=== PATIENT | male | born 1995 | race Two or more races ===

== ENCOUNTER 2016-12-07 22:00 | Emergency (ER) | payer SELFPAY ==
[2016-12-07 22:04] VITALS: BP 145/78; BMI 20.9
[2016-12-07] MEDS ORDERED: TORADOL 30 MG VIAL IVP STA (22:37)
[2016-12-07] MEDS ORDERED: TORADOL 30 MG VIAL ONE (22:39)
--- NOTE | 2016-12-07 22:41 | DR.ABDMALE ---
HPI - Time seen Time seen: 22:38 - PCP Primary Care Physician: NFD - Complaint Chief Complaint Doctors Comments: Patient complains of right lower abdominal pain for the past 24 hours getting worst tonight. Patient states pain 6 of 10. He denies fever, chills, nausea or vomiting. Patient denies hematuria, diarrhea or pedro. States he has no local doctor and he denies any recent trauma. Patient denies tobacco or alcohol usage. Chief Complaint:: ABD PAIN SINCE YESTERDAY DENIES ANY N/V/D - Reviewed Nurses Notes Review: Yes - Mode of arrival Mode of Arrival: Ambulatory - Timing Onset of Chief Complaint: 12/06/16 Came on: Gradually - Duration Duration: Constant How lon Duration: Days - [facility] - Severity Severity: Moderate - Quality Quality: Aching - Context Onset: Gradually History of: None - Modifying factors Worsening Factors: denies: Nothing, Exertion, Food, Position, Movement, Rest, Other Improving Factors: denies: Antacids, Food, Position, Lying Still, Nothing - Associated signs and symptoms Associated Signs and Symptoms: None. denies: Nausea, Vomiting, Diarrhea, Constipation, Hematemesis, Hematochezia, Melena, Vaginal Bleeding, Vaginal Discharge, Dysuria, Frequency, Urgency, Hematuria, Other PMH - PMH Past Medical History: No Past Surgical History: No - Family History History of Family Medical Conditions: No - Social History Does patient currently use any type of tobacco product: No Have you used tobacco products in the last 12 months: No Type of Tobacco Use: None Does any household member use tobacco: No Alcohol Use: None Do you use any recreational Drugs:: No Lives Where: Home - infectious screening Have you traveled outside the country in the last 6 months?: No Isolation: Standard ROS - Review of Systems Constitutional: No Symptoms Reported Eyes: No Symptoms Reported ENTM: No Symptoms Reported. negative: See HPI, Ear Pain, Ear Discharge, Pulling on Ears, Hearing Loss, Nose Pain, Nose Discharge, Epistaxis, Nose Congestion, Mouth Pain, Mouth Swelling, Loose Teeth, Drooling, Throat Pain, Throat Swelling, Ear Foreign Body Respiratoy: No Symptoms Reported Cardiovascular: No Symptoms Reported Gastrointestinal/Abdominal: Abdominal Pain. negative: No Symptoms Reported, See HPI, Constipation, Diarrhea, Nausea, Vomiting, Food Intolerance, Other Genitourinary: No Symptoms Reported. negative: See HPI, Discharge, Dysuria, Frequency, Hematuria, Pain, Bleeding, Other Neurological: No Symptoms Reported Musculoskeletal: No Symptoms Reported Integumentary: No Symptoms Reported Hematologic/Lymphatic: No Symptoms Reported Endocrine: No Symptoms Reported Psychiatric: No Symptoms Reported PE - Vital Signs Vital Signs: Temp Pulse Resp BP Pulse Ox 12/07/16 22:01 98.8 F 67 16 145/78 99 - General Limitations: Language Barrier General Appearance: Alert, In No Apparent Distress - Head Head Exam: Normal Inspection, Atraumatic, Normocephalic - Eyes Eye exam: Normal Appearance, PERRL, EOMI. negative: Scleral Icterus, Conjunctival Injection, Nystagmus, Miosis, Mydrasis, Periorbital Swelling, Periorbital Tenderness, Other - ENT ENT Exam: Normal Exam, Normal Oropharynx, Normal External Ear Exam, Mucous Membranes Moist, TM's Normal Bilaterally - Neck Neck Exam: Normal Inspection, Full ROM, Trachea Midline. negative: Tenderness, Meningismus, Lymphadenopathy, Thyromegaly, Other - Chest Chest Inspection: Normal Inspection, Symmetric Chest Wall Rise - Respiratory Respiratory Exam: Normal Lung Sounds Bilat Respiratory Exam: Bilateral Clear to Auscultation - Cardiovascular Cardiovascular Exam: Regular Rate, Normal Rhythm, Normal Heart Sounds. negative : Bradycardia, Tachycardia, Irregular Rhythm, Systolic Murmur, Diastolic Murmur , Rubs, Gallop, Clicks, JVD, +S1, +S2, +S3, +S4, Other - Abdominal Exam Abdominal Exam: Normal Inspection, Normal Bowel Sounds, Soft. negative: Distention, Tenderness, Guarding, Rebound, Rigidity, Dimnished Bowel Sounds, Hyperactive Bowel Sounds, Hypoactive Bowel Sounds, Organomegaly, Trauma, Incision, Ascites, Mass, Bruit, Pulsatile Mass, Hernia, Other Abdominal Tenderness: RLQ, Moderate - Rectal Rectal Exam: Deferred - Back Back Exam: Normal Inspection, Full ROM. negative: Tenderness, (R) CVA Tenderness, (L) CVA Tenderness, Muscle Spasm, Paraspinal Tenderness, Vertebral Tenderness, Rashes, (R) Sciatic Notch Tenderness, (L) Sciatic Notch Tendern, (R ) Straight Leg Raise, (L) Straight Leg Raise, Other - Extremeties Extremities Exam: Normal Inspection, Full ROM, Normal Capillary Refill. negative: Tenderness, Edema, Joint Swelling, Calf Tenderness, Other - Exam: Male: Deferred - Neurologic Neurological Exam: Alert, Oriented X3, CN II-XII Intact, Normal Gait, Reflexes Normal - Psychiatric Psychiatric Exam: Normal Affect, Normal Mood. negative: Depressed, Agitated, Anxious, Flat Affect, Manic, Homicidal Ideation, Suicidal Ideation, Other - Skin Skin Exam: Warm, Dry, Intact, Normal Color ROR - Labs Reviewed Laboratory Results Reviewed?: Yes (All labs and x-ray results reviewed and discussed with pataient) Result Diagrams: 12/07/16 22:45 12/07/16 22:45 Laboratory: WBC 10.0 X10^3/uL (3.6-10.0) 12/07/16 22:45 RBC 5.00 X10^6/uL (4.7-6.0) 12/07/16 22:45 Hgb 15.9 g/dL (13.5-18.0) 12/07/16 22:45 Hct 44.7 % (42.0-54.0) 12/07/16 22:45 MCV 89.4 fL (80.0-100.0) 12/07/16 22:45 MCH 31.8 pg (27.0-34.0) 12/07/16 22:45 MCHC 35.6 g/dL (33.0-35.0) H 12/07/16 22:45 RDW 13.4 % (11.6-16.5) 12/07/16 22:45 Plt Count 262 X10^3/uL (150.0-450.0) 12/07/16 22:45 MPV 7.9 fL (7.4-11.0) 12/07/16 22:45 Neut % 69.7 % (42.0-75.0) 12/07/16 22:45 Lymph % 21.4 % (21.0-51.0) 12/07/16 22:45 Ashley % 7.1 % (0.0-13.0) 12/07/16 22:45 Eos % 1.3 % (0.9-2.9) 12/07/16 22:45 Baso % 0.5 % (0.2-1.0) 12/07/16 22:45 Neut # 7.0 x10^3/uL (2.2-4.8) H 12/07/16 22:45 Lymph # 2.1 X10^3/uL (1.3-2.9) 12/07/16 22:45 Ashley # 0.7 x10^3/uL (0.3-0.8) 12/07/16 22:45 Eos # 0.1 x10^3/uL (0.0-0.2) 12/07/16 22:45 Baso # 0.1 X10^3/uL (0.0-0.1) 12/07/16 22:45 Absolute Nucleated RBC 0.0 /100WBC 12/07/16 22:45 Sodium 142 mmol/L (136-145) 12/07/16 22:45 Corrected Sodium 142 mmol/L (136-145) 12/07/16 22:45 Potassium 3.6 mmol/L (3.5-5.1) 12/07/16 22:45 Chloride 105 mmol/L (98-107) 12/07/16 22:45 Carbon Dioxide 27.8 mmol/L (21-32) 12/07/16 22:45 BUN 15 mg/dL (7-18) 12/07/16 22:45 Creatinine 1.03 mg/dL (0.70-1.30) 12/07/16 22:45 Est GFR (MDRD) Af Amer > 60 (>60) 12/07/16 22:45 Est GFR (MDRD) Non-Af > 60 (>60) 12/07/16 22:45 Glucose 117 mg/dL (65-99) H 12/07/16 22:45 Calcium 8.9 mg/dL (8.5-10.1) 12/07/16 22:45 Corrected Calcium TNP 12/07/16 22:45 Total Bilirubin 0.70 mg/dL (0.2-1.0) 12/07/16 22:45 AST 26 Units/L (15-37) 12/07/16 22:45 ALT 34 Units/L (12-78) 12/07/16 22:45 Alkaline Phosphatase 109 Units/L (46-116) 12/07/16 22:45 Total Protein 7.6 g/dL (6.4-8.2) 12/07/16 22:45 Albumin 4.2 g/dL (3.4-5.0) 12/07/16 22:45 Globulin 3.4 g/dL (2.5-4.5) 12/07/16 22:45 Albumin/Globulin Ratio 1.2 Ratio (1.1-2.1) 12/07/16 22:45 Amylase 88 Units/L (25-115) 12/07/16 22:45 Lipase 119 Units/L (73-393) 12/07/16 22:45 Urine Opiates Screen Negative (NEG=<300) 12/07/16 22:46 Urine Methadone Screen Negative (NEG=<300) 12/07/16 22:46 Ur Barbiturates Screen Negative (NEG=<200) 12/07/16 22:46 Ur Phencyclidine Scrn Negative (NEG=<25) 12/07/16 22:46 Ur Amphetamines Screen Negative (NEG=<1000) 12/07/16 22:46 U Benzodiazepines Scrn Negative (NEG=<200) 12/07/16 22:46 Urine Cocaine Screen Negative (NEG=<300) 12/07/16 22:46 U Marijuana (THC) Screen Negative (NEG=<50) 12/07/16 22:46 - XRAY XRAY Interpreted by: Radiologist (CT abdomen/pelvis: Normal CT examination of abdomen and pelvis.) - Diagnosis Discharge Problem: Colicky right lower quadrant pain, Hyperglycemia Abdominal pain Qualifiers: Abdominal location: right lower quadrant Qualified Code(s): R10.31 - Right lower quadrant pain - Discharge Plan Disposition: HOME, SELF-CARE Condition: Stable Prescriptions: Dicyclomine HCl [BENTYL CAP 10 MG *] 10 mg PO TID #21 cap Ibuprofen [MOTRIN TAB 800 MG *] 800 mg PO BID PRN #40 tab PRN Reason: Pain/Inflammation - Follow ups/Referrals Follow ups/Referrals: NFD,None [Primary Care Provider] - 3 days CHRISTINA GOODEN [STAFF PHYSICIAN] - 3 days - Instructions Instructions: Abdominal Pain, Adult, Hyperglycemia
[2016-12-07 23:09] LABS: ALANINE AMINOTRANSFERASE 34 Units/L (12-78); ALBUMIN 4.2 g/dL (3.4-5.0); ALKALINE PHOSPHATASE 109 Units/L (46-116); AMYLASE 88 Units/L (25-115); ASPARTATE AMINO TRANSFERASE 26 Units/L (15-37); BLOOD UREA NITROGEN 15 mg/dL (7-18); CALCIUM 8.9 mg/dL (8.5-10.1); CARBON DIOXIDE 27.8 mmol/L (21-32); CHLORIDE 105 mmol/L (98-107); COR NA(FOR HYPERGLY) 142 mmol/L (136-145); CREATININE 1.03 mg/dL (0.70-1.30); GLUCOSE 117 mg/dL (65-99); LIPASE 119 Units/L (73-393); SODIUM 142 mmol/L (136-145); TOTAL PROTEIN 7.6 g/dL (6.4-8.2); eGFR BLACK RACES > 60 (>60); eGFR NON BLACK RACES > 60 (>60)
[2016-12-07 23:17] LABS: BASOPHILS # (AUTO) 0.1 X10^3/uL (0.0-0.1); BASOPHILS % (AUTO) 0.5 % (0.2-1.0); EOSINOPHILS # (AUTO) 0.1 x10^3/uL (0.0-0.2); EOSINOPHILS % (AUTO) 1.3 % (0.9-2.9); HEMATOCRIT 44.7 % (42.0-54.0); HEMOGLOBIN 15.9 g/dL (13.5-18.0); LYMPHOCYTES # (AUTO) 2.1 X10^3/uL (1.3-2.9); LYMPHOCYTES % (AUTO) 21.4 % (21.0-51.0); MEAN CORPUSCULAR HEMOGLOBIN 31.8 pg (27.0-34.0); MEAN CORPUSCULAR HGB CONC 35.6 g/dL (33.0-35.0); MEAN CORPUSCULAR VOLUME 89.4 fL (80.0-100.0); MEAN PLATELET VOLUME 7.9 fL (7.4-11.0); MONOCYTES # (AUTO) 0.7 x10^3/uL (0.3-0.8); MONOCYTES % (AUTO) 7.1 % (0.0-13.0); NEUTROPHILS % (AUTO) 69.7 % (42.0-75.0); PLATELET COUNT 262 X10^3/uL (150.0-450.0); RED CELL DISTRIBUTION WIDTH 13.4 % (11.6-16.5)
[2016-12-08] MEDS ORDERED: NS 100 ML IV 100 ML IV ONE (01:06)
--- NOTE | 2016-12-08 01:53 | CT ---
EXAM: CT ABDOMEN AND PELVIS WITH CONTRAST INDICATION: Abdominal pain COMPARISION: No priors available for comparison TECHNIQUE: Axial CT examination of the abdomen and pelvis was performed with intravenous contrast. The patient received intravenous contrast without adverse reaction. Coronal and sagittal reconstructions were c reated using the axial data. FINDINGS: The lung bases are clear. The liver, spleen, pancreas, adrenal glands, kidneys, and gallbladder are normal. There is no evidence of biliary ductal dilatation. The aorta and inferior vena cava are norm al in caliber. The bowel loops are nonobstructed. No abnormal mass, lymphadenopathy, or fluid collection. Urinary bladder is normal. The appendix is normal. The regional skeleton is intact. IMPRESSION: Normal CT examination of the abdomen and pelvis. Reported By:
[2016-12-08] MEDS ORDERED: BENTYL CAP 10 MG PO STA (02:39)
[2016-12-08] MEDS ORDERED: BENTYL CAP 10 MG PO ONE (02:42)
[2016-12-08] MEDS ORDERED: REGLAN INJ 10 MG VIAL IVP STA (02:43)
[2016-12-08] MEDS ORDERED: DEMEROL INJ IVP ONE (02:44)
[2016-12-08 02:49] LABS: BILIRUBIN,URINE NEGATIVE (NEGATIVE); BLOOD/HEMOGLOBIN,URINE NEGATIVE (NEGATIVE); GLUCOSE, URINE NEGATIVE (NEGATIVE); KETONES,URINE NEGATIVE (NEGATIVE); LEUKOCYTE ESTERASE ,URINE NEGATIVE (NEGATIVE); NITRITES,URINE NEGATIVE (NEGATIVE); PH,URINE 6.5 (5.0 - 8.0); PROTEIN,URINE NEGATIVE (NEGATIVE); UROBILINOGEN,URINE NORMAL (NORMAL)
[2016-12-08] MEDS ORDERED: DEMEROL INJ ONE (02:56)
[2016-12-08] MEDS ORDERED: REGLAN INJ 10 MG VIAL ONE (02:56)
[2016-12-08 03:08] LABS: APPEARANCE,URINE CLEAR (CLEAR); BACTERIA,URINE NEGATIVE /HPF (NEGATIVE); COLOR,URINE YELLOW (YELLOW); RBC,URINE 0-3 /HPF (NEGATIVE); SQUAMOUS EPITHELIAL CELL,UR RARE /HPF (NEGATIVE)
== END 2016-12-08 03:14 | disposition home or self-care (01) ==
LOC: ER 22:00
DX: R10.31 Right lower quadrant pain (principal); R73.9 Hyperglycemia, unspecified
CPT/HCPCS: 36415; 74177; 80053; 80307; 81001; 82150; 83690; 85025; 96365; 96374; 96375; 99283; A4216; A4222; G0434; J1885; J2175; J2765